=== PATIENT | female | born 1980 | race American Indian/Alaskan Native ===

== ENCOUNTER 2017-02-03 14:46 | Emergency (ER) | payer SELFPAY ==
[2017-02-03 15:39] VITALS: BP 115/92
--- NOTE | 2017-02-03 16:24 | Emergency Department Report ---
ED Extremity Problem HPI - General Chief complaint: Extremity Injury, Lower Stated complaint: KNEE PAIN Time Seen by Provider: 02/03/17 16:01 Source: patient Mode of arrival: Ambulatory Limitations: No Limitations - History of Present Illness Initial comments: PT states she feel at work on Saturday. PT works at [employer]. PT states she landed on her L knee. PT reports L knee pain and swelling since fall. PT states she had an off the record MRI and was given a Percocet last night(which helped her pain). PT states she was dx with torn meniscus. PT states since the visit was "off the record", she could not be given RX. PT states she was given a knee brace but she will have to return it. PT states that she has appointment with ortho [facility] on Saturday and that she needs knee surgery. PT states due to her hx of gastsric bypass, she can not take NSAIDs. PT states her PCP is Dr Aj and she writes for a few Tylenol #3 a month for the pain with IBSD. PT last filled Tylenol #3 on 01-24-17 per RX bottle that pt has in her hand. MD Complaint: joint paint Onset/Timin -: Sudden, week(s) Location: left, knee History of Same: No Severity scale (0 -10): 10 Quality: constant Consistency: constant Improves with: medication (percocet ) Worsens with: weight bearing, walking, other (laying down at night. ) Associated Symptoms: denies other symptoms ED Review of Systems ROS: Stated complaint: KNEE PAIN Other details as noted in HPI Comment: All other systems reviewed and negative Respiratory: no symptoms reported Musculoskeletal: as per HPI Skin: denies: change in color Hematological/Lymphatic: other (hx of anemia, on IRON transfusions weekly ) ED Past Medical Hx - Past Medical History Previous Medical History?: Yes Additional medical history: anemia, ibsd - Surgical History Past Surgical History?: Yes Additional Surgical History: gastric bypass in 2006 and revision in 2016, tubal - Social History Smoking Status: Never Smoker Substance Use Type: None ED Physical Exam - General Limitations: No Limitations General appearance: alert, in no apparent distress, obese - Head Head exam: Present: atraumatic, normocephalic - Eye Eye exam: Present: normal appearance. Absent: scleral icterus, conjunctival injection - ENT ENT exam: Present: normal exam, normal external ear exam - Neck Neck exam: Present: normal inspection, full ROM - Respiratory Respiratory exam: Present: normal lung sounds bilaterally. Absent: respiratory distress, chest wall tenderness - Cardiovascular Cardiovascular Exam: Present: regular rate, normal rhythm, normal heart sounds - Extremities Exam Extremities exam: Present: normal inspection, full ROM, tenderness - Expanded Lower Extremity Exam Left Knee exam: Present: normal inspection, tenderness (L knee cap ), crepidus, full knee extension. Absent: swelling Lower Leg exam: Absent: tenderness, swelling, palpable cord Ankle exam: Present: normal inspection, full ROM Foot/Toe exam: Present: normal inspection, full ROM Neuro vascular tendon exam: Absent: pulse deficit, abnormal cap refill - Back Exam Back exam: Present: normal inspection, full ROM - Neurological Exam Neurological exam: Present: alert, oriented X3 - Psychiatric Psychiatric exam: Present: normal affect, normal mood - Skin Skin exam: Present: warm, dry, intact ED Course Vital Signs 02/03/17 15:36 Temperature 98.4 F Pulse Rate 76 Respiratory 16 Rate Blood Pressure 115/92 O2 Sat by Pulse 100 Oximetry - Reevaluation(s) Reevaluation #1: 02/03/17 16:29 Reviewed pt's RX fills in the [facility] database. PT denies filling 60 tabs of Percocet 7.5mg 5 days ago. PT states she does not see that doctor or use that pharmacy. PT states there are two Leticia Alexanders with close birthdays. PT thinks the other Leticia filled those narcotics. PT states she personally lives at [address] [place] [address]. I personally called [facility] at [phone] to inquire about the narcotics that were filled 5 days ago. PT stated she lives at [address] [place] [address], however on the sign in sheet, she wrote her address at [address] [place] [address], which is the address listed on file at the [facility]. [facility] also has the phone number that the pt signed in with linked to the account. PT is aware of this. PT aware that I do not fill comfortable writing narcotic pain medication for her. Will give pt her own knee brace. PT is aware she will need to follow up with her PCP for pain medication. PT also encouraged to follow up with Pharmacy and police, due to the possibility of identify theft. PT verbalizes understanding and plan of care. Reevaluation #2: 02/03/17 17:21 PT left prior to receiving knee immobilizer - Pulse Oximetry Interpretation Digit-Finger Initial Pulse Oximetry Readin Actions Taken: none ED Medical Decision Making - Differential Diagnosis strain, drug seeking, fall Critical Care Time: No Critical care attestation.: If time is entered above; I have spent that time in minutes in the direct care of this critically ill patient, excluding procedure time. ED Disposition Clinical Impression: Acute pain of left knee, Drug-seeking behavior Disposition: ELOPED Is pt being admited?: No Does the pt Need Aspirin: No Condition: Stable Instructions: Knee Sprain (ED), Knee Pain (ED), RICE Therapy (ED), Knee Immobilizer (ED) Additional Instructions: Keep your appointment with your new ortho MD on Saturday. Call your PCP tomorrow to arrange for follow up Follow up with [facility] [phone] as they have record of you filling RX of Percocet 7.5mg on January 29, 2017 and you are saying that you did not fill that RX. Referrals: PRIMARY CARE, [Referring] - 3-5 Days Time of Disposition: 16:39
== END 2017-02-03 16:04 | disposition left against medical advice (07) ==
LOC: ED 14:46
DX: M25.562 Pain in left knee (principal); Z76.5 Malingerer [conscious simulation]
CPT/HCPCS: 99281